=== PATIENT | female | born 1950 | race Caucasian/White ===

== ENCOUNTER → 2021-06-23 | Outpatient (CLI) | payer MEDICARE ==
[~2021-06-23] VITALS: Ht 160 cm; Wt 79.4 kg
[2021-06-23] MEDS: REGADENOSON 0.4 MG/5 ML PF SYG IVP SCH (15:46)
== END | disposition home or self-care (01) ==
LOC: OIH 09:12
PROVIDERS: ATTEND Internal Medicine Cardiovascular Disease
DX: R07.9 Chest pain, unspecified (principal)
CPT/HCPCS: 78452; 93017; 96374; A9500 ×2; J2785

== ENCOUNTER → 2021-06-26 | Outpatient (CLI) | payer MEDICARE ==
[2021-06-26 10:51] LABS: CREATININE 0.9 mg/dL (0.5-1.5)
== END | disposition home or self-care (01) ==
LOC: LAB 09:25
PROVIDERS: ATTEND Internal Medicine Cardiovascular Disease
DX: I71.1 Thoracic aortic aneurysm, ruptured (principal)
CPT/HCPCS: 36415; 82565; 84520

== ENCOUNTER → 2021-06-30 | Outpatient (CLI) | payer MEDICARE ==
[~2021-06-30] MED LIST: IOHEXOL-350 75 ML VIAL IV ONE
== END | disposition home or self-care (01) ==
LOC: RAH 07:37
PROVIDERS: ATTEND Internal Medicine Cardiovascular Disease
DX: I71.1 Thoracic aortic aneurysm, ruptured (principal); M47.815 Spondylosis without myelopathy or radiculopathy, thoracolumbar region
CPT/HCPCS: 71275; Q9967

== ENCOUNTER → 2022-04-21 | Outpatient (CLI) | payer MEDICARE | END | disposition home or self-care (01) | LOC: SHCH 09:57 | PROVIDERS: ATTEND Internal Medicine Cardiovascular Disease | DX: I11.9 Hypertensive heart disease without heart failure (principal) | CPT/HCPCS: 93306 ==

== ENCOUNTER → 2022-11-23 | Outpatient (CLI) | payer MEDICARE ==
[2022-11-23 16:27] LABS: BASOPHILS % (AUTO) 1.1 % (0.0-5.0); HEMATOCRIT 45.4 % (36-48); LYMPHOCYTES % (AUTO) 26.2 % (21.0-51.0); MEAN CORPUSCULAR HEMOGLOBIN 26.3 pg (27.0-33.0); MEAN CORPUSCULAR HGB CONC 30.6 g/dL (32.0-36.0); MONOCYTES % (AUTO) 9.5 % (3.0-13.0); NEUTROPHILS % (AUTO) 55.9 % (40.0-77.0); PLATELET COUNT (AUTO) 244 K/uL (130-400); RED BLOOD CELL COUNT(AUTO) 5.28 MIL/uL (4.00-5.50); RED CELL DISTRIBUTION WIDTH 14.4 % (11.0-15.5)
[2022-11-23 16:59] LABS: ALBUMIN 3.9 g/dL (3.5-5.0); POTASSIUM 4.6 mmol/L (3.5-5.1); THYROID STIMULATING HORMONE 1.5 uIU/mL (0.36-3.74); TOTAL PROTEIN, SERUM 7.4 g/dL (6.0-8.3)
[2022-11-23 17:32] LABS: ERYTHROCYTE SEDIMENTATION RATE 7 MM/HR (0-30)
== END | disposition home or self-care (01) ==
LOC: LAB 15:26
PROVIDERS: ATTEND Internal Medicine Cardiovascular Disease
DX: I10 Essential (primary) hypertension (principal); I71.20 Thoracic aortic aneurysm, without rupture, unspecified; Z79.899 Other long term (current) drug therapy
CPT/HCPCS: 36415; 80053; 82652; 84443; 85025; 85651; 86140

== ENCOUNTER → 2022-12-04 | Outpatient (CLI) | payer MEDICARE ==
[~2022-12-04] MED LIST changes: +GADOTERATE MEGLUMINE 10 MMOL/20 ML VIAL IV ONE; -IOHEXOL-350 75 ML VIAL IV ONE
[2022-12-04 12:37] LABS: CREATININE 0.9 mg/dL (0.5-1.5); POTASSIUM 4.5 mmol/L (3.5-5.1)
== END | disposition home or self-care (01) ==
LOC: RAH 07:18
PROVIDERS: ATTEND Internal Medicine Cardiovascular Disease
DX: I10 Essential (primary) hypertension (principal); I71.20 Thoracic aortic aneurysm, without rupture, unspecified
CPT/HCPCS: 71552; 80048; 36415; A9575

== ENCOUNTER → 2023-04-29 | Outpatient (CLI) | payer MEDICARE ==
[2023-04-30 12:28] LABS: POTASSIUM 4.5 mmol/L (3.5-5.1)
== END | disposition home or self-care (01) ==
LOC: LAB 09:20
PROVIDERS: ATTEND Internal Medicine Cardiovascular Disease
DX: I51.7 Cardiomegaly (principal)
CPT/HCPCS: 36415; 80048

== ENCOUNTER → 2024-04-25 | Outpatient (CLI) | payer OTHER | END | disposition home or self-care (01) | LOC: RAH 12:21 | PROVIDERS: ATTEND Internal Medicine Cardiovascular Disease | DX: Z13.6 Encounter for screening for cardiovascular disorders (principal) | CPT/HCPCS: 75571 ==